=== PATIENT | male | born 1980 | race Hispanic/Latino ===

== ENCOUNTER 2019-08-18 05:04 | Emergency (ER) | payer SELFPAY ==
[2019-08-18 05:32] LABS: BASOPHILS % (AUTO) 0.3 % (0.0-5.0); EOSINOPHILS % (AUTO) 1.4 % (0.0-8.0); HEMATOCRIT 44.9 % (42-54); LYMPHOCYTES % (AUTO) 23.9 % (21.0-51.0); MEAN CORPUSCULAR HEMOGLOBIN 32.2 pg (27.0-33.0); MEAN CORPUSCULAR HGB CONC 34.1 g/dL (32.0-36.0); MEAN CORPUSCULAR VOLUME 94.5 fL (79-99); MONOCYTES % (AUTO) 7.8 % (3.0-13.0); NUCLEATED RED BLOOD CELLS 0.2 % (0.0-0.19); PLATELET COUNT (AUTO) 232 K/uL (130-400); RED BLOOD CELL COUNT(AUTO) 4.75 MIL/uL (4.50-6.20); RED CELL DISTRIBUTION WIDTH 11.9 % (11.0-15.5); WHITE BLOOD COUNT (AUTO) 11.7 K/uL (4.8-10.8)
[2019-08-18 05:52] LABS: CREATININE 0.9 mg/dL (0.5-1.5); POTASSIUM 4.3 mmol/L (3.5-5.1)
[2019-08-18 05:58] LABS: ALBUMIN 4.2 g/dL (3.5-5.0); BILIRUBIN,TOTAL 0.7 mg/dL (0.2-1.0)
[2019-08-18] MEDS ORDERED: METRONIDAZOLE 500MG/100ML BAG 100 ML ONE (06:14)
[2019-08-18] MEDS ORDERED: LEVOFLOXACIN 500 MG/D5W 100 ML 100 ML ONE (06:14)
[2019-08-18] MEDS ORDERED: KETOROLAC TROMETHAMINE 30MG/ML ONE (06:28)
[2019-08-18] MEDS ORDERED: METRONIDAZOLE 500 MG TABLET ONE (06:36)
[2019-08-18] MEDS ORDERED: LEVOFLOXACIN 500 MG TABLET ONE (06:36)
[2019-08-18] MEDS ORDERED: ONDANSETRON 4 MG TABLET ONE (06:44)
== END 2019-08-18 08:00 | disposition home or self-care (01) ==
LOC: EDH 05:04
DX: K57.92 Diverticulitis of intestine, part unspecified, without perforation or abscess without bleeding (principal); R10.31 Right lower quadrant pain
CPT/HCPCS: 36415; 74176; 80053; 83690; 85025; 96374; 99284; J1885; J1956; J3490; Q0162

== ENCOUNTER 2020-04-19 18:20 | Emergency (ER) | payer OTHER ==
[2020-04-19] MEDS ORDERED: ACETAMINOPHEN EXTRA STRENGTH 500 MG TABLET ONE (19:20)
== END 2020-04-19 20:45 | disposition home or self-care (01) ==
LOC: EDH 18:20
DX: J06.9 Acute upper respiratory infection, unspecified (principal); Z20.828 Contact with and (suspected) exposure to other viral communicable diseases; Z72.0 Tobacco use; Z90.49 Acquired absence of other specified parts of digestive tract
CPT/HCPCS: 87426; 87804 ×2; 99283; U0003

== ENCOUNTER 2022-01-29 02:12 | Emergency (ER) | payer OTHER ==
[~2022-01-29] VITALS: Ht 175.3 cm; Wt 82.6 kg
[2022-01-29] MEDS ORDERED: KETOROLAC 60 MG VIAL (30MG/ML) IM ONE (03:56)
[2022-01-29] MEDS ORDERED: IBUP-2070 PO (05:00)
[2022-01-29] MEDS ORDERED: CYCL-309 PO (05:00)
[2022-01-29] MEDS ORDERED: TETANUS/DIPHTHERIA TOXOID [ADULT] 0.5 ML VIAL IM ONE (05:00)
[2022-01-29] MEDS ORDERED: HYDROCODONE/ACETAMINOPHEN 5/325 MG TAB PO ONE (05:00)
[2022-01-29] MEDS ORDERED: ORPHENADRINE CITRATE 30 MG/ML ML IM ONE (05:00)
[2022-01-29 05:10] VITALS: BP 130/72
== END 2022-01-29 05:16 | disposition home or self-care (01) ==
LOC: EDH 02:12
DX: S16.1XXA Strain of muscle, fascia and tendon at neck level, initial encounter (principal); S00.81XA Abrasion of other part of head, initial encounter; Z79.1 Long term (current) use of non-steroidal anti-inflammatories (NSAID); W18.39XA Other fall on same level, initial encounter; Y93.89 Activity, other specified; Y92.89 Other specified places as the place of occurrence of the external cause; Y99.8 Other external cause status
CPT/HCPCS: 99284; 70450; 90714; 72125; 70486; 96372 ×2; 90471; J1885; J2360